=== PATIENT | male | born 1955 | race Two or more races ===

== ENCOUNTER 2020-09-02 17:13 | Emergency (ER) | payer MEDICARE ==
[~2020-09-02] VITALS: Ht 170.2 cm; Wt 72.7 kg
[~2020-09-02 17:13] MED LIST: OXYC10TA PO; VALA10008 PO
[2020-09-02 17:32] VITALS: BP 148/76
--- NOTE | 2020-09-02 17:57 | RAD ---
Three-view left shoulder dated 09/02/2020. No comparison available. CLINICAL INDICATION: Pain after injury. FINDINGS: 3 views left shoulder show normal bony alignment. No displaced fracture. Mild hypertrophic change of the glenohumeral joint with minimal degenerative change of the AC joint. There is a spinal stimulator device in place with surgical clips at the left axilla. IMPRESSION: No acute bony abnormality. Electronically signed by: Clarke Briscoe MD (09/02/2020 5:55 PM) [id number]
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
[2020-09-02] MEDS ORDERED: CYCL10TA2 PO (18:44)
[2020-09-02] MEDS ORDERED: LIDO700A21 TP (18:44)
[2020-09-02] MEDS ORDERED: METH4TAB2 PO (18:44)
== END 2020-09-02 19:16 | disposition home or self-care (01) ==
LOC: ER 17:13
DX: M25.512 Pain in left shoulder (principal)
CPT/HCPCS: 73030; 99282